=== PATIENT | female | born 1965 ===

== ENCOUNTER 2018-07-28 08:18 | Outpatient (CLI) | payer OTHER | END 2018-07-28 08:20 | disposition home or self-care (01) | LOC: SONOGRAMA 08:18 | DX: E04.2 Nontoxic multinodular goiter (principal) ==

== ENCOUNTER 2024-01-13 09:30 | Outpatient (CLI) | payer OTHER | END 2024-01-13 09:33 | disposition home or self-care (01) | LOC: SONOGRAMA 09:30 | PROVIDERS: ATTEND Pathology Anatomic Pathology & Clinical Pathology | DX: D34 Benign neoplasm of thyroid gland (principal); E04.2 Nontoxic multinodular goiter ==

== ENCOUNTER 2025-02-15 14:51 | Outpatient (CLI) | payer OTHER | END 2025-02-15 14:53 | disposition home or self-care (01) | LOC: SONOGRAMA 14:51 | PROVIDERS: ATTEND Pathology Anatomic Pathology & Clinical Pathology | DX: D34 Benign neoplasm of thyroid gland (principal); E04.1 Nontoxic single thyroid nodule ==